=== PATIENT | male | born 1945 | race Caucasian/White ===

== ENCOUNTER → 2016-10-03 | Outpatient (CLI) | payer OTHER, MEDICARE ==
--- NOTE | 2016-10-03 13:53 | Diagnostic Imaging Report ---
EXAMINATION: Three views of the lumbar spine. INDICATION: Back pain and pain in the sacroiliac joint region. FINDINGS: The lumbar spine has normal alignment. The vertebral body heights are preserved. There is significant disc height loss at the L5-S1 level with vacuum phenomenon. Posterior osteophytes are noted at this level and at L3-4 as well as multilevel anterior osteophytes. There is vacuum phenomenon at the L3-4 and L4-5 levels. There is fusion of the left SI joint. Prominent degenerative sclerotic changes around the distal facet joints are noted. IMPRESSION: Prominent lower lumbar spine disc degenerative changes. Fusion of the left SI joint. Dictated by: Dictated on workstation # [id number]
--- NOTE | 2016-10-03 13:55 | Diagnostic Imaging Report ---
EXAMINATION: Three views of the sacroiliac joints. INDICATION: Pain in the sacroiliac region. FINDINGS: There is sclerosis and mild erosions along the left SI joint with question of early fusion in its upper aspect. The right SI joint demonstrates only minimal subchondral sclerosis and irregularity. No fracture or dislocation. Prominent degenerative changes with disc phenomena in the lower lumbar spine seen. Osseous thickening and irregularity along the medial aspect of the left acetabulum is seen. IMPRESSION: 1. Suggestion of asymmetric sacroiliitis, worse on the left side, with suggestion of early fusion superiorly. 2. Suggestion of bone deformity along the medial aspect of the left acetabulum of uncertain etiology. Correlate clinically and with CT scan of the pelvis, as needed. Dictated by: Dictated on workstation # [id number]
== END ==
LOC: RAD 10:07
PROVIDERS: ATTEND Family Medicine
DX: M47.816 Spondylosis without myelopathy or radiculopathy, lumbar region (principal)
CPT/HCPCS: 72100; 72202